=== PATIENT | male | born 1975 | race Caucasian/White ===

== ENCOUNTER 2020-06-03 10:25 | Emergency (ER) | payer OTHER ==
[~2020-06-03] VITALS: Ht 182.9 cm; Wt 102.3 kg
[2020-06-03] MEDS ORDERED: CefTRIAXone inj 2,000 MG in normal saline 100ml IV soln 100 ML IV ONE (10:35)
[2020-06-03] MEDS ORDERED: CefTRIAXone 2gm/D5W 50ml 50 ML IV ONE (10:35)
[2020-06-03 11:14] LABS: BASOPHILS % (AUTO) 0.3 % (0-1); EOSINOPHILS % (AUTO) 0.1 % (0-6); HEMATOCRIT 49.1 % (42.0-52.0); HEMOGLOBIN 16.5 g/dl (14.0-17.9); LYMPHOCYTES # (AUTO) 0.7 X10'3 (1.1-4.8); LYMPHOCYTES % (AUTO) 5.6 % (21-51); MEAN CORPUSCULAR HGB CONC 33.7 g/dL (33.0-36.5); MEAN PLATELET VOLUME 8.3 FL (7.4-10.4); MONOCYTES # (AUTO) 0.5 X10'3 (0-0.9); MONOCYTES % (AUTO) 4.4 % (2-12); NEUTROPHILS # (AUTO) 11.2 X10'3 (1.8-7.7); NEUTROPHILS % (AUTO) 89.6 % (42-75); PLATELET COUNT 143 X10'3 (140-440); RED BLOOD COUNT 5.16 X10'6 (4.70-6.10); RED CELL DISTRIBUTION WIDTH 13.1 % (11.5-14.5); WHITE BLOOD COUNT 12.5 X10'3 (4.5-11.0)
--- NOTE | 2020-06-03 11:24 | NUR ---
Vascular at bedside.
[2020-06-03 11:31] LABS: ALANINE AMINOTRANSFERASE 69 U/L (12-78); ALBUMIN 3.7 G/DL (3.4-5.0); ALBUMIN/GLOBULIN RATIO 0.9 (1.1-1.5); ALKALINE PHOSPHATASE 55 IU/L (46-116); ANION GAP 8 (8-16); ASPARTATE AMINO TRANSFERASE 61 U/L (10-37); BILIRUBIN,TOTAL 0.8 MG/DL (0.1-1.0); BLOOD UREA NITROGEN 20 MG/DL (7-18); BUN/CREATININE RATIO 16.1 (5.4-32.0); CHLORIDE 101 MMOL/L (99-107); CREATININE 1.24 MG/DL (0.60-1.10); GLUCOSE 113 MG/DL (70-104); POTASSIUM 3.9 MMOL/L (3.5-5.1); SODIUM 137 MMOL/L (135-145); TOTAL CARBON DIOXIDE 28.2 MMOL/L (24-32); eGFR 63 ML/MIN
[2020-06-03] MEDS ORDERED: CEPH500C5 PO (11:56)
[2020-06-03 12:12] VITALS: BP 152/81
[2020-06-04] MEDS ORDERED: PRED10TA23 PO (12:43)
[2020-06-04] MEDS ORDERED: MIRT15TA PO (12:43)
[2020-06-04] MEDS ORDERED: PRE1T PO (12:44)
== END 2020-06-03 12:13 ==
LOC: ER 10:26 → EEVIPCON 10:26 → ER 12:13
DX: L03.115 Cellulitis of right lower limb (principal); J02.9 Acute pharyngitis, unspecified; R68.2 Dry mouth, unspecified; M79.661 Pain in right lower leg; R50.9 Fever, unspecified; R11.0 Nausea
CPT/HCPCS: 36415; 80053; 83605; 84145; 85025; 87040; 93971; 96365; 99284; J0696

== ENCOUNTER 2020-06-04 09:55 | Inpatient (IN) | payer OTHER ==
[~2020-06-04] VITALS: Ht 182.9 cm; Wt 133.0 kg
[~2020-06-04 09:55] MED LIST: CEPH500C5 PO
[2020-06-04] MEDS ORDERED: vancomycin/NS 1 GM ADD-VANTAGE 250 ML IV ONE (10:10)
[2020-06-04] MEDS ORDERED: normal saline 1000ML IV soln IV ONE (10:10)
[2020-06-04] MEDS ORDERED: piperacillin/tazo 3.375gm/50ml 50 ML IV ONE (10:10)
--- NOTE | 2020-06-04 10:30 | NUR ---
PT IS A DIFFICULT IV START, AWAITING FOR THE ULTRASOUND MACHINE. IN ORDER TO START AN IV AND DRAW LABS
[2020-06-04 11:46] LABS: BASOPHILS % (AUTO) 0.2 % (0-1); EOSINOPHILS % (AUTO) 0.3 % (0-6); HEMATOCRIT 46.7 % (42.0-52.0); HEMOGLOBIN 15.9 g/dl (14.0-17.9); LYMPHOCYTES % (AUTO) 11.6 % (21-51); MEAN CORPUSCULAR HGB CONC 34.1 g/dL (33.0-36.5); MEAN CORPUSCULAR VOLUME 93.9 FL (78-98); MEAN PLATELET VOLUME 8.5 FL (7.4-10.4); MONOCYTES # (AUTO) 0.8 X10'3 (0-0.9); MONOCYTES % (AUTO) 8.7 % (2-12); NEUTROPHILS # (AUTO) 6.9 X10'3 (1.8-7.7); NEUTROPHILS % (AUTO) 79.2 % (42-75); PLATELET COUNT 161 X10'3 (140-440); RED BLOOD COUNT 4.97 X10'6 (4.70-6.10); RED CELL DISTRIBUTION WIDTH 13.1 % (11.5-14.5); WHITE BLOOD COUNT 8.7 X10'3 (4.5-11.0)
[2020-06-04 11:57] LABS: ALANINE AMINOTRANSFERASE 49 U/L (12-78); ALBUMIN 3.2 G/DL (3.4-5.0); ALBUMIN/GLOBULIN RATIO 0.7 (1.1-1.5); ALKALINE PHOSPHATASE 53 IU/L (46-116); ANION GAP 6 (8-16); ASPARTATE AMINO TRANSFERASE 37 U/L (10-37); BILIRUBIN,TOTAL 0.5 MG/DL (0.1-1.0); BLOOD UREA NITROGEN 18 MG/DL (7-18); BUN/CREATININE RATIO 12.9 (5.4-32.0); CALCIUM 8.7 MG/DL (8.5-10.1); CHLORIDE 100 MMOL/L (99-107); GLUCOSE 106 MG/DL (70-104); POTASSIUM 4.1 MMOL/L (3.5-5.1); SODIUM 137 MMOL/L (135-145); TOTAL CARBON DIOXIDE 31.1 MMOL/L (24-32); eGFR 55 ML/MIN
[2020-06-04] MEDS ORDERED: HYDROcodone/acetaminophen 10/325mg tab PO ONE (12:30)
[2020-06-04] MEDS ORDERED: MIRT15TA PO (12:43)
[2020-06-04] MEDS ORDERED: PRED10TA23 PO (12:43)
[2020-06-04] MEDS ORDERED: PRE1T PO (12:44)
[2020-06-04] MEDS ORDERED: iohexol 300mg/ml 100ml inj. ONE (12:47)
[2020-06-04] MEDS ORDERED: acetaminophen 650mg rectal suppository RC PRN (13:05)
[2020-06-04] MEDS ORDERED: magnesium 2GM in 50ml NS 50 ML IV PRN (13:05)
[2020-06-04] MEDS ORDERED: magnesium Cl slow-release 64mg tablet PO PRN (13:05)
[2020-06-04] MEDS ORDERED: potassium CL 10mEq/100ml bag 100 ML IV PRN ×2 (13:05)
[2020-06-04] MEDS ORDERED: potassium Cl 20 mEq SR tablet PO PRN ×2 (13:05)
[2020-06-04] MEDS ORDERED: bisacodyl 10mg suppository rectal RC PRN (13:05)
[2020-06-04] MEDS ORDERED: acetaminophen 325mg tablet PO PRN ×2 (13:05)
[2020-06-04] MEDS ORDERED: magnesium hydroxide 30ml (MOM) UD suspension PO PRN (13:05)
[2020-06-04] MEDS ORDERED: mag hydrox/Alum hydrox/simeth 30ml oral suspension PO PRN (13:05)
[2020-06-04] MEDS ORDERED: magnesium 4gm in 100ml NS 100 ML IV PRN (13:05)
[2020-06-04] MEDS ORDERED: morphine 2 MG/ML inj. syringe IV PRN ×2 (13:05)
[2020-06-04] MEDS ORDERED: HYDROcodone/acetaminophen 5mg/325mg tablet PO PRN (13:05)
[2020-06-04] MEDS ORDERED: ondansetron/PF 4mg/2ml inj IV PRN (13:05)
[2020-06-04 13:25] LABS: HEMOGLOBIN A1C 5.5 % (4.5-6.2)
[2020-06-04] MEDS: normal saline 1000ml 1,000 ML IV SCH ×2 (14:03→23:02)
--- NOTE | 2020-06-04 15:30 | NUR ---
Patient in room [facility]. I have received report from Yu Roland from ED and had the opportunity to ask questions and assume patient care.
[2020-06-04 18:00] VITALS: BP 127/69
[2020-06-04] MEDS ORDERED: VANCOMYCIN 1,500MG inj. 1,500 MG in normal saline 500ml IV soln 300 ML IV SCH (18:00)
--- NOTE | 2020-06-04 18:47 | NUR ---
Problems reprioritized. Patient report given, questions answered & plan of care reviewed with Micheal CARROLL.
--- NOTE | 2020-06-04 18:52 | NUR ---
Patient in room [facility]. I have received report from GLEN Hong and had the opportunity to ask questions and assume patient care.
[2020-06-04] MEDS: HYDROcodone/acetaminophen 10/325mg tab PO PRN (19:01)
[2020-06-04] MEDS: piperacillin/tazo 3.375gm/50ml 50 ML IV SCH (19:01)
[2020-06-04] MEDS: lactobacillus rhamnosus 10,000 MMU CELLS/CAPSULE PO SCH (19:47)
[2020-06-04] MEDS: heparin, porcine 5000 units/ml vial SQ SCH (19:48)
[2020-06-04] MEDS: K and/or MAG REPLACEMENT MC SCH (20:00)
--- NOTE | 2020-06-04 20:14 | NUR ---
Vancomycin okay to run while Zosyn is running through a different [facility] site per Pharmacist.
[2020-06-04] MEDS: mirtazapine 15mg tablet PO SCH (21:00)
[2020-06-04] MEDS: VANCOMYCIN 1,500MG inj. 1,500 MG in normal saline 500ml IV soln 300 ML IV SCH (23:42)
[2020-06-05] VITALS: BP 128/75
[2020-06-05 00:20] VITALS: BP 124/80
--- NOTE | 2020-06-05 00:39 | NUR ---
2325: Tech informed me of temp of 101.5. @2335: Tylenol 650mg given for temp as well as a cool wash rag for his forehead. 0015:I informed hospitalist that patient had a temp. NO new orders. 0020: I went to check on the patient and I was informed by the guard that he was having some chest discomfort. I asked the patient to explain what he was feeling. He said he had SOB and some pressure in his left medial chest. It did not radiate to left arm, did not hurt with palpation. Patient stated; " It feels hot when I breathe". Breathe sounds are clear, VS: 124/80, HR:86 R:20 96RA Temp still 101.5. STAT ECG done. DR Ng signed off on the ECG. NO new Orders. Patient is now stating that he is feeling better. I will continue to monitor patient.
--- NOTE | 2020-06-05 00:58 | NUR ---
Re checked temp 100.8, patient is feeling better.
[2020-06-05] MEDS: HYDROcodone/acetaminophen 10/325mg tab PO PRN ×4 (02:06→20:59)
[2020-06-05] MEDS: piperacillin/tazo 3.375gm/50ml 50 ML IV SCH ×3 (02:07→18:06)
--- NOTE | 2020-06-05 04:14 | NUR ---
Patient is resting with eyes closed in no apparent distress as I praveen his blood from his line.
--- NOTE | 2020-06-05 06:18 | NUR ---
Problems reprioritized. Patient report given, questions answered & plan of care reviewed with GLEN Mclean.
--- NOTE | 2020-06-05 06:38 | NUR ---
Patient in room [facility]. I have received report from GLEN Burton and had the opportunity to ask questions and assume patient care.
[2020-06-05] MEDS: lactobacillus rhamnosus 10,000 MMU CELLS/CAPSULE PO SCH ×2 (07:32→20:59)
[2020-06-05] MEDS: VANCOMYCIN 1,500MG inj. 1,500 MG in normal saline 500ml IV soln 300 ML IV SCH ×3 (07:32→23:55)
[2020-06-05] MEDS: heparin, porcine 5000 units/ml vial SQ SCH ×2 (07:33→20:59)
[2020-06-05 08:00] VITALS: BP 118/70
[2020-06-05] MEDS: K and/or MAG REPLACEMENT MC SCH ×2 (08:00→20:00)
[2020-06-05 08:06] LABS: BASOPHILS % (AUTO) 0.2 % (0-1); EOSINOPHILS # (AUTO) 0.1 X10'3 (0-0.9); HEMATOCRIT 38.3 % (42.0-52.0); HEMOGLOBIN 13.1 g/dl (14.0-17.9); LYMPHOCYTES # (AUTO) 1.1 X10'3 (1.1-4.8); LYMPHOCYTES % (AUTO) 17.1 % (21-51); MEAN CORPUSCULAR HEMOGLOBIN 32.4 PG (27.0-31.0); MEAN CORPUSCULAR HGB CONC 34.3 g/dL (33.0-36.5); MEAN CORPUSCULAR VOLUME 94.4 FL (78-98); MEAN PLATELET VOLUME 8.1 FL (7.4-10.4); MONOCYTES # (AUTO) 0.8 X10'3 (0-0.9); MONOCYTES % (AUTO) 11.9 % (2-12); NEUTROPHILS # (AUTO) 4.6 X10'3 (1.8-7.7); NEUTROPHILS % (AUTO) 69.8 % (42-75); PLATELET COUNT 161 X10'3 (140-440); RED BLOOD COUNT 4.06 X10'6 (4.70-6.10); RED CELL DISTRIBUTION WIDTH 12.9 % (11.5-14.5); WHITE BLOOD COUNT 6.6 X10'3 (4.5-11.0)
[2020-06-05 08:22] LABS: ALANINE AMINOTRANSFERASE 34 U/L (12-78); ALBUMIN 2.3 G/DL (3.4-5.0); ALBUMIN/GLOBULIN RATIO 0.7 (1.1-1.5); ALKALINE PHOSPHATASE 48 IU/L (46-116); ANION GAP 6 (8-16); ASPARTATE AMINO TRANSFERASE 31 U/L (10-37); BILIRUBIN,TOTAL 0.5 MG/DL (0.1-1.0); BLOOD UREA NITROGEN 12 MG/DL (7-18); CALCIUM 7.7 MG/DL (8.5-10.1); CHLORIDE 107 MMOL/L (99-107); CHOL/HDL RATIO 4.1 (0.00-4.99); CHOLESTEROL 94 MG/DL (0-200); GLUCOSE 122 MG/DL (70-104); HDL CHOLESTEROL 23 MG/DL (35-60); LDL CHOLESTEROL 57 MG/DL (50-100); MAGNESIUM 1.8 MG/DL (1.5-2.4); PHOSPHORUS 3.5 MG/DL (2.3-4.5); POTASSIUM 3.5 MMOL/L (3.5-5.1); SODIUM 140 MMOL/L (135-145); TOTAL CARBON DIOXIDE 26.9 MMOL/L (24-32); TOTAL PROTEIN 5.7 G/DL (6.4-8.2); TRIGLYCERIDES 77 MG/DL (20-135); eGFR 65 ML/MIN
[2020-06-05 11:00] VITALS: BP 122/66
[2020-06-05] MEDS: normal saline 1000ml 1,000 ML IV SCH ×2 (11:32→19:02)
[2020-06-05] MEDS: diphenhydrAMINE 25mg capsule PO PRN ×2 (16:03→23:01)
[2020-06-05] MEDS ORDERED: VANCOMYCIN LEVEL IV ONE (17:30)
--- NOTE | 2020-06-05 18:48 | NUR ---
Problems reprioritized. Patient report given, questions answered & plan of care reviewed with Zoey Butts RN.
--- NOTE | 2020-06-05 18:49 | NUR ---
Patient in room [facility]. I have received report from GLEN neal and had the opportunity to ask questions and assume patient care. Addendum: 06/05/20 at 1849 by Yolanda Corea RN Amended: Links added.
[2020-06-05 20:00] VITALS: BP 137/72
[2020-06-05] MEDS: clotrimazole topical cream 15gm tube TP SCH (20:58)
[2020-06-05] MEDS: mirtazapine 15mg tablet PO SCH (21:00)
[2020-06-06] VITALS: BP 119/63
[2020-06-06] MEDS: piperacillin/tazo 3.375gm/50ml 50 ML IV SCH ×4 (01:58→23:05)
[2020-06-06] MEDS: diphenhydrAMINE 25mg capsule PO PRN (05:04)
[2020-06-06] MEDS: HYDROcodone/acetaminophen 10/325mg tab PO PRN ×4 (05:04→22:32)
[2020-06-06 05:13] LABS: BASOPHILS % (AUTO) 0.3 % (0-1); EOSINOPHILS # (AUTO) 0.1 X10'3 (0-0.9); EOSINOPHILS % (AUTO) 1.8 % (0-6); HEMATOCRIT 38.8 % (42.0-52.0); HEMOGLOBIN 13.2 g/dl (14.0-17.9); LYMPHOCYTES # (AUTO) 1.4 X10'3 (1.1-4.8); LYMPHOCYTES % (AUTO) 17.6 % (21-51); MEAN CORPUSCULAR HEMOGLOBIN 32.3 PG (27.0-31.0); MEAN CORPUSCULAR HGB CONC 33.9 g/dL (33.0-36.5); MEAN CORPUSCULAR VOLUME 95.1 FL (78-98); MEAN PLATELET VOLUME 8.1 FL (7.4-10.4); MONOCYTES # (AUTO) 0.8 X10'3 (0-0.9); MONOCYTES % (AUTO) 10.9 % (2-12); NEUTROPHILS # (AUTO) 5.4 X10'3 (1.8-7.7); NEUTROPHILS % (AUTO) 69.4 % (42-75); PLATELET COUNT 171 X10'3 (140-440); RED BLOOD COUNT 4.08 X10'6 (4.70-6.10); WHITE BLOOD COUNT 7.7 X10'3 (4.5-11.0)
[2020-06-06 05:34] LABS: ALANINE AMINOTRANSFERASE 35 U/L (12-78); ALBUMIN 2.4 G/DL (3.4-5.0); ALBUMIN/GLOBULIN RATIO 0.7 (1.1-1.5); ALKALINE PHOSPHATASE 54 IU/L (46-116); ANION GAP 9 (8-16); ASPARTATE AMINO TRANSFERASE 41 U/L (10-37); BILIRUBIN,TOTAL 0.4 MG/DL (0.1-1.0); BLOOD UREA NITROGEN 14 MG/DL (7-18); BUN/CREATININE RATIO 11.3 (5.4-32.0); CHLORIDE 107 MMOL/L (99-107); CREATININE 1.24 MG/DL (0.60-1.10); GLUCOSE 101 MG/DL (70-104); MAGNESIUM 1.9 MG/DL (1.5-2.4); PHOSPHORUS 3.8 MG/DL (2.3-4.5); POTASSIUM 3.9 MMOL/L (3.5-5.1); SODIUM 141 MMOL/L (135-145); eGFR 63 ML/MIN
--- NOTE | 2020-06-06 06:11 | NUR ---
Problems reprioritized. Patient report given, questions answered & plan of care reviewed with GLEN Mclean.
--- NOTE | 2020-06-06 06:15 | NUR ---
Patient in room [facility]. I have received report from Zoey Butts RN and had the opportunity to ask questions and assume patient care.
[2020-06-06] MEDS: VANCOMYCIN 1,500MG inj. 1,500 MG in normal saline 500ml IV soln 300 ML IV SCH (06:59)
[2020-06-06 07:00] VITALS: BP 131/83
[2020-06-06] MEDS ORDERED: VANCOMYCIN LEVEL IV ONE (07:30)
[2020-06-06] MEDS: VANCOmycin 1250MG/NS 250ml Bag 250 ML IV SCH ×2 (08:00→15:04)
[2020-06-06] MEDS: K and/or MAG REPLACEMENT MC SCH ×2 (08:00→20:00)
[2020-06-06] MEDS: heparin, porcine 5000 units/ml vial SQ SCH ×2 (09:02→20:35)
[2020-06-06] MEDS: lactobacillus rhamnosus 10,000 MMU CELLS/CAPSULE PO SCH ×2 (09:02→20:34)
[2020-06-06] MEDS: clotrimazole topical cream 15gm tube TP SCH ×2 (09:03→20:37)
[2020-06-06 11:00] VITALS: BP 120/69
[2020-06-06] MEDS: normal saline 1000ml 1,000 ML IV SCH ×2 (14:24)
[2020-06-06 18:00] VITALS: BP 133/70
--- NOTE | 2020-06-06 18:00 | NUR ---
Patient in room [facility]. I have received report from Caridad CARROLL and had the opportunity to ask questions and assume patient care.
--- NOTE | 2020-06-06 18:20 | NUR ---
Problems reprioritized. Patient report given, questions answered & plan of care reviewed with GLEN Benson.
[2020-06-06] MEDS: mirtazapine 15mg tablet PO SCH (20:36)
[2020-06-07] VITALS: BP 145/83
[2020-06-07] MEDS: VANCOmycin 1250MG/NS 250ml Bag 250 ML IV SCH ×4 (01:08→23:16)
[2020-06-07] MEDS: normal saline 1000ml 1,000 ML IV SCH ×2 (01:11→14:21)
[2020-06-07] MEDS: HYDROcodone/acetaminophen 10/325mg tab PO PRN ×6 (01:14→22:10)
[2020-06-07] MEDS: diphenhydrAMINE 25mg capsule PO PRN (02:35)
[2020-06-07 05:18] LABS: BASOPHILS % (AUTO) 0.4 % (0-1); EOSINOPHILS # (AUTO) 0.2 X10'3 (0-0.9); EOSINOPHILS % (AUTO) 2.8 % (0-6); HEMATOCRIT 38.1 % (42.0-52.0); HEMOGLOBIN 12.9 g/dl (14.0-17.9); LYMPHOCYTES # (AUTO) 1.2 X10'3 (1.1-4.8); LYMPHOCYTES % (AUTO) 16.5 % (21-51); MEAN CORPUSCULAR HEMOGLOBIN 31.8 PG (27.0-31.0); MEAN CORPUSCULAR HGB CONC 33.8 g/dL (33.0-36.5); MEAN CORPUSCULAR VOLUME 94.2 FL (78-98); MEAN PLATELET VOLUME 7.9 FL (7.4-10.4); MONOCYTES # (AUTO) 0.7 X10'3 (0-0.9); MONOCYTES % (AUTO) 10.3 % (2-12); PLATELET COUNT 201 X10'3 (140-440); RED BLOOD COUNT 4.04 X10'6 (4.70-6.10); RED CELL DISTRIBUTION WIDTH 13.1 % (11.5-14.5); WHITE BLOOD COUNT 7.2 X10'3 (4.5-11.0)
[2020-06-07 05:26] LABS: ALANINE AMINOTRANSFERASE 41 U/L (12-78); ALBUMIN 2.4 G/DL (3.4-5.0); ALBUMIN/GLOBULIN RATIO 0.7 (1.1-1.5); ALKALINE PHOSPHATASE 61 IU/L (46-116); ANION GAP 7 (8-16); ASPARTATE AMINO TRANSFERASE 51 U/L (10-37); BILIRUBIN,TOTAL 0.5 MG/DL (0.1-1.0); BLOOD UREA NITROGEN 14 MG/DL (7-18); BUN/CREATININE RATIO 12.1 (5.4-32.0); CALCIUM 7.9 MG/DL (8.5-10.1); CHLORIDE 106 MMOL/L (99-107); CREATININE 1.16 MG/DL (0.60-1.10); GLUCOSE 104 MG/DL (70-104); MAGNESIUM 1.8 MG/DL (1.5-2.4); PHOSPHORUS 3.3 MG/DL (2.3-4.5); SODIUM 139 MMOL/L (135-145); TOTAL CARBON DIOXIDE 26.3 MMOL/L (24-32); TOTAL PROTEIN 5.9 G/DL (6.4-8.2); eGFR 68 ML/MIN
--- NOTE | 2020-06-07 06:34 | NUR ---
Problems reprioritized. Patient report given, questions answered & plan of care reviewed with Jerrica CARROLL.
[2020-06-07] MEDS: K and/or MAG REPLACEMENT MC SCH ×2 (06:57→20:00)
[2020-06-07 07:00] VITALS: BP 130/71
[2020-06-07] MEDS ORDERED: VANCOMYCIN LEVEL IV ONE (07:30)
[2020-06-07] MEDS: clotrimazole topical cream 15gm tube TP SCH ×2 (08:00→20:23)
[2020-06-07] MEDS: lactobacillus rhamnosus 10,000 MMU CELLS/CAPSULE PO SCH ×2 (08:21→20:21)
[2020-06-07] MEDS: piperacillin/tazo 3.375gm/50ml 50 ML IV SCH ×2 (08:22→15:31)
[2020-06-07] MEDS: heparin, porcine 5000 units/ml vial SQ SCH ×2 (08:23→20:21)
[2020-06-07 11:49] VITALS: BP 142/75
--- NOTE | 2020-06-07 17:21 | NUR ---
per pharmacist, non-admin 1600 vanco as timing was off due to morning vanco being hung late due to trough draw delay. restart 0000 dose.
[2020-06-07 18:00] VITALS: BP 158/85
--- NOTE | 2020-06-07 18:15 | NUR ---
Patient in room [facility]. I have received report from Jerrica CARROLL and had the opportunity to ask questions and assume patient care.
--- NOTE | 2020-06-07 18:38 | NUR ---
Problems reprioritized. Patient report given, questions answered & plan of care reviewed with erma ramirez.
[2020-06-07] MEDS: mirtazapine 15mg tablet PO SCH (21:00)
[2020-06-07 23:55] VITALS: BP 135/79
[2020-06-08] MEDS: piperacillin/tazo 3.375gm/50ml 50 ML IV SCH ×2 (01:19→07:16)
[2020-06-08] MEDS: normal saline 1000ml 1,000 ML IV SCH ×2 (01:43→12:21)
[2020-06-08 04:35] LABS: BASOPHILS % (AUTO) 0.4 % (0-1); EOSINOPHILS # (AUTO) 0.2 X10'3 (0-0.9); EOSINOPHILS % (AUTO) 3.1 % (0-6); HEMATOCRIT 38.7 % (42.0-52.0); HEMOGLOBIN 12.9 g/dl (14.0-17.9); LYMPHOCYTES # (AUTO) 1.5 X10'3 (1.1-4.8); LYMPHOCYTES % (AUTO) 23.6 % (21-51); MEAN CORPUSCULAR HEMOGLOBIN 31.5 PG (27.0-31.0); MEAN CORPUSCULAR HGB CONC 33.5 g/dL (33.0-36.5); MEAN CORPUSCULAR VOLUME 94.2 FL (78-98); MEAN PLATELET VOLUME 7.7 FL (7.4-10.4); MONOCYTES # (AUTO) 0.6 X10'3 (0-0.9); MONOCYTES % (AUTO) 9.8 % (2-12); NEUTROPHILS % (AUTO) 63.1 % (42-75); PLATELET COUNT 228 X10'3 (140-440); RED CELL DISTRIBUTION WIDTH 13.1 % (11.5-14.5); WHITE BLOOD COUNT 6.3 X10'3 (4.5-11.0)
[2020-06-08 04:45] LABS: ALANINE AMINOTRANSFERASE 38 U/L (12-78); ALBUMIN 2.3 G/DL (3.4-5.0); ALBUMIN/GLOBULIN RATIO 0.7 (1.1-1.5); ALKALINE PHOSPHATASE 57 IU/L (46-116); ANION GAP 4 (8-16); ASPARTATE AMINO TRANSFERASE 43 U/L (10-37); BILIRUBIN,TOTAL 0.5 MG/DL (0.1-1.0); BLOOD UREA NITROGEN 14 MG/DL (7-18); BUN/CREATININE RATIO 12.1 (5.4-32.0); CALCIUM 7.9 MG/DL (8.5-10.1); CHLORIDE 107 MMOL/L (99-107); CREATININE 1.16 MG/DL (0.60-1.10); GLUCOSE 97 MG/DL (70-104); MAGNESIUM 1.8 MG/DL (1.5-2.4); PHOSPHORUS 3.6 MG/DL (2.3-4.5); POTASSIUM 3.8 MMOL/L (3.5-5.1); SODIUM 140 MMOL/L (135-145); TOTAL CARBON DIOXIDE 28.6 MMOL/L (24-32); TOTAL PROTEIN 5.8 G/DL (6.4-8.2); eGFR 68 ML/MIN
--- NOTE | 2020-06-08 06:27 | NUR ---
Problems reprioritized. Patient report given, questions answered & plan of care reviewed with Didi CARROLL.
--- NOTE | 2020-06-08 06:34 | NUR ---
I have received report from Kelley CARROLL and had the opportunity to ask questions and assume patient care.
[2020-06-08] MEDS: K and/or MAG REPLACEMENT MC SCH (06:56)
[2020-06-08] MEDS: HYDROcodone/acetaminophen 10/325mg tab PO PRN ×2 (07:16→12:22)
[2020-06-08] MEDS: VANCOmycin 1250MG/NS 250ml Bag 250 ML IV SCH (07:16)
[2020-06-08] MEDS: lactobacillus rhamnosus 10,000 MMU CELLS/CAPSULE PO SCH (07:16)
[2020-06-08] MEDS: heparin, porcine 5000 units/ml vial SQ SCH (07:17)
[2020-06-08 08:58] VITALS: BP 153/87
[2020-06-08] MEDS ORDERED: CLOT30CR19 TP (13:21)
[2020-06-08] MEDS ORDERED: LINE600T12 PO (13:21)
[2020-06-08] MEDS ORDERED: LACT1CAP26 PO (13:21)
--- NOTE | 2020-06-08 15:10 | NUR ---
Patient discharged to [facility]. IV discontinued. New Medications list given to officer.
== END 2020-06-08 15:17 | DRG 872 ==
LOC: EEVIPCON 09:55 → ER 09:55 → ED HOLD 13:02 → SUR 3N 15:30
PROVIDERS: ADMIT Family Medicine; ATTEND Family Medicine
PROC: BQ2R1ZZ Computerized Tomography (CT Scan) of Right Lower Extremity using Low Osmolar Contrast (ICD-10-PCS; principal; 2020-06-04)
DX: A41.9 Sepsis, unspecified organism (principal); L03.115 Cellulitis of right lower limb; B19.20 Unspecified viral hepatitis C without hepatic coma; F15.90 Other stimulant use, unspecified, uncomplicated; B35.3 Tinea pedis; F32.9 Major depressive disorder, single episode, unspecified; F17.210 Nicotine dependence, cigarettes, uncomplicated; F41.9 Anxiety disorder, unspecified; Z81.3 Family history of other psychoactive substance abuse and dependence; Z90.49 Acquired absence of other specified parts of digestive tract
CPT/HCPCS: 36415; 73701; 76937; 80053; 80061; 80202; 83036; 83605; 83735; 84100; 84145; 85025; 85651; 87040; 87081; 93005; 96365; 97116; 97161; 97530; 99285; G0378; J1644; J2543; J3370; J7030; J7040; Q0163; Q9967